=== PATIENT | female | born 1995 | race Caucasian/White ===

== ENCOUNTER → 2017-01-08 | Outpatient (CLI) | payer OTHER, MEDICAID ==
[~2017-01-08] MED LIST: BENADRYL 25MG C25 MG PO; CEPHALEXIN500 M1 PO; DILAUDID2 MG PO; HYDROCODONE-APA1 TA1 PO; PRENATAL1 TA2 PO; XANAX 0.5MG TA0.5 MG PO
[2017-01-08 17:12] LABS: HEMOGLOBIN 10.2 g/dL (12.2-16.2); LYMPH # 1.6 K/mm3 (0.7-4.5); LYMPH % 17.3 % (10-50.0)
[2017-01-08 18:10] LABS: URINE BILIRUBIN - DIPSTICK NEGATIVE (NEG); URINE BLOOD NEGATIVE (NEG)
[2017-01-08 20:14] LABS: BUN 7 mg/dL (7-18)
[2017-01-08 20:56] LABS: GFR (ESTIMATED) 89 ML/MIN (59-)
== END ==
LOC: LAB 16:40
PROVIDERS: Obstetrics & Gynecology
DX: Z01.812 Encounter for preprocedural laboratory examination (principal)